=== PATIENT | male | born 1960 | race African-American/Black ===

== ENCOUNTER 2023-11-16 10:39 | Inpatient (IN) | payer OTHER ==
[2023-11-16 11:15] VITALS: BMI 22.7
[2023-11-16] MEDS ORDERED: MAGNESIUM HYDROX 2400MG/30ML ORAL SUSPENSION 30 ML CUP PO PRN (14:04)
[2023-11-16] MEDS ORDERED: IBUPROFEN 400 MG TABLET (FP) PO PRN (14:04)
[2023-11-16] MEDS ORDERED: BENZOCAINE/MENTHOL (CHLORASEPTIC ) LOZENGE MM PRN (14:04)
[2023-11-16] MEDS ORDERED: NICOTINE POLACRILEX 2 MG LOZENGE BC PRN (14:04)
[2023-11-16] MEDS ORDERED: BENZONATATE 200 MG CAPSULE PO PRN (14:04)
[2023-11-16] MEDS ORDERED: guaiFENesin 600 MG TABLET.ER (FP) PO PRN (14:04)
[2023-11-16] MEDS ORDERED: NALOXONE (NARCAN) HCL 4 MG/0.1 ML SPRAY NS PRN (14:04)
[2023-11-16] MEDS ORDERED: NALOXONE HCL 0.4 MG/ML VIAL IM PRN (14:04)
[2023-11-16] MEDS ORDERED: POLYETHYLENE GLYCOL (HEALTHYLAX) 3350 17 GM PACKET PO PRN (14:04)
[2023-11-16] MEDS ORDERED: LOPERAMIDE HCL 2 MG CAPSULE PO PRN (14:04)
[2023-11-16] MEDS: THIAMINE 100 MG TABLET PO SCH (21:58)
[2023-11-16] MEDS: MELATONIN 5 MG TABLETS PO SCH (21:58)
[2023-11-16] MEDS: MAG HYDROX/AL HYDROX/SIMETH 30 ML UNIT-DOSE CUP PO PRN (21:59)
[2023-11-16] MEDS: hydrOXYzine PAMOATE 25 MG CAPSULE (FP) PO PRN (21:59)
[2023-11-17 02:54] LABS: PH,URINE 6.5 (5.0-8.0); URINE APPEARANCE CLEAR; URINE BILIRUBIN NEGATIVE (NEGATIVE); URINE COLOR YELLOW; URINE GLUCOSE (UA) NEGATIVE (NEGATIVE); URINE KETONE NEGATIVE (NEGATIVE); URINE LEUK ESTERASE NEGATIVE (NEGATIVE); URINE NITRITE NEGATIVE (NEGATIVE); URINE PROTEIN NEGATIVE (NEGATIVE)
[2023-11-17 08:59] LABS: POTASSIUM 5.2 mmol/L (3.5-5.1)
[2023-11-17 09:04] LABS: HEMATOCRIT 39.9 % (35.4-49); HEMOGLOBIN 12.9 GM/dL (11.7-16.9); MCH 34.8 pg (25.7-33.7); MCHC 32.4 g/dl (32.0-35.9); MEAN CELL VOLUME 107.4 fl (80-96); MEAN PLT VOLUME 7.5 fl (7.5-11.1); PLATELET COUNT 231 10^3/uL (134-434); RBC 3.71 M/mm3 (4.00-5.60); RDW 12.9 % (11.9-15.9)
[2023-11-17 09:08] LABS: CALCIUM 8.9 mg/dL (8.5-10.1)
[2023-11-17 09:09] LABS: ALBUMIN 3.2 g/dl (3.4-5.0); BLOOD UREA NITROGEN 19.4 mg/dL (7-18)
[2023-11-17] MEDS: PRENATAL VITAMINS W/ FOLIC ACID TABLET (FP) PO SCH (09:10)
[2023-11-17] MEDS: NICOTINE 14 MG/24 HOURS TOPICAL PATCH TD SCH (09:10)
[2023-11-17 09:13] LABS: BILIRUBIN,TOTAL 0.7 mg/dL (0.2-1); CREATININE 0.8 mg/dL (0.55-1.3); TOT PROT 6.4 g/dl (6.4-8.2)
[2023-11-17] MEDS: IBUPROFEN 600 MG TABLET (FP) PO PRN (21:38)
[2023-11-19] MEDS ORDERED: TUBERCULIN PPD 5 TU/0.1ML VIAL ID ONE ×2 (15:16→16:12)
[2023-11-19] MEDS: ACETAMINOPHEN 325 MG TABLET (FP) PO PRN (15:19)
[2023-11-19] MEDS: TUBERCULIN PPD 5 TU/0.1ML VIAL ID ONE (15:23)
[2023-11-20] MEDS ORDERED: IBUPROFEN 600 MG TABLET (FP) PO PRN (11:48)
[2023-11-20] MEDS ORDERED: ACETAMINOPHEN 325 MG TABLET (FP) PO PRN (11:48)
[2023-11-20] MEDS: LIDOCAINE 5% TOPICAL PATCH TP SCH (13:15)
[2023-11-20] MEDS: BACLOFEN 10 MG TABLET (FP) PO SCH (13:15)
[2023-11-20 13:53] LABS: INR 0.97 (0.83-1.09)
[2023-11-20 13:55] LABS: POTASSIUM 4.4 mmol/L (3.5-5.1)
[2023-11-20 14:03] LABS: ALBUMIN 3.2 g/dl (3.4-5.0); MAGNESIUM 1.9 mg/dL (1.8-2.4)
[2023-11-20 14:06] LABS: CREATININE 0.9 mg/dL (0.55-1.3)
[2023-11-20 14:07] LABS: BILIRUBIN,TOTAL 1.1 mg/dL (0.2-1)
[2023-11-20 14:08] LABS: TOT PROT 6.4 g/dl (6.4-8.2)
[2023-11-20] MEDS: MELATONIN 5 MG TABLETS PO SCH (21:18)
[2023-11-20] MEDS: QUEtiapine FUMARATE 50 MG TABLET PO SCH (21:19)
[2023-11-20] MEDS: LIDOCAINE PATCH REMOVAL MC SCH (21:20)
[2023-11-20] MEDS: METHYL SALICYLATE/MENTHOL 30 GM TUBE TP SCH (21:20)
[2023-11-22] MEDS ORDERED: LIDOCAINE 5% TOPICAL PATCH TP PRN (10:24)
[2023-11-22] MEDS ORDERED: NICOTINE 14 MG/24 HOURS TOPICAL PATCH TD PRN (10:24)
[2023-11-22] MEDS: LACTULOSE 20 GM/30 ML UDC (FOR ORAL USE ONLY) PO SCH (10:40)
[2023-11-22] MEDS: QUEtiapine FUMARATE 50 MG TABLET PO SCH (21:12)
[2023-11-23 06:52] VITALS: BP 115/70; PULSE 77; RESP 17; TEMP 97.6
[2023-11-23] MEDS ORDERED: NALOXONE (NYS OPIOID OVERDOSE PROGRAM) 4 MG/0.1 ML SPRAY NS PRN (14:39)
== END 2023-11-23 13:37 | disposition left against medical advice (07) | DRG 770 ==
LOC: YASAS 10:39 → Y3NR 12:30 → Y3E 11-19 11:27
PROVIDERS: ADMIT Allergy & Immunology; ATTEND Psychiatry & Neurology Pain Medicine
PROC: HZ42ZZZ Group Counseling for Substance Abuse Treatment, Cognitive-Behavioral (ICD-10-PCS; principal; 2023-11-16)
DX: F14.20 Cocaine dependence, uncomplicated (principal); F10.20 Alcohol dependence, uncomplicated; F12.20 Cannabis dependence, uncomplicated; F17.210 Nicotine dependence, cigarettes, uncomplicated; F19.282 Other psychoactive substance dependence with psychoactive substance-induced sleep disorder; E72.20 Disorder of urea cycle metabolism, unspecified; E87.5 Hyperkalemia; K21.9 Gastro-esophageal reflux disease without esophagitis; M16.12 Unilateral primary osteoarthritis, left hip; Z88.0 Allergy status to penicillin
CPT/HCPCS: 36415; 73521-TC-FY; 80053; 80305; 80307; 81003; 82140; 82652; 83735; 85027; 85610; 86780; 87811; 93005; 93010; J0475